=== PATIENT | male | born 1980 ===

== ENCOUNTER 2019-04-27 15:58 | Outpatient (CLI) | payer OTHER ==
--- NOTE | 2019-04-27 16:31 | XRay Report ---
Left ankle, 3 views INDICATION: Chronic left ankle pain. COMPARISON: None. IMPRESSION: No acute osseous or soft tissue abnormality. No significant DJD. Signer Name: Bruce Barros Jr, MD Signed: 04/27/2019 4:26 PM Workstation Name: [id number]
== END 2019-04-27 15:59 | disposition home or self-care (01) ==
LOC: SPVIMAG 15:58
PROVIDERS: ATTEND Internal Medicine Hematology & Oncology
DX: M25.572 Pain in left ankle and joints of left foot (principal); C18.2 Malignant neoplasm of ascending colon; Z15.09 Genetic susceptibility to other malignant neoplasm